=== PATIENT | male | born 1985 ===

== ENCOUNTER 2021-03-16 18:07 | Emergency (ER) | payer SELFPAY ==
[~2021-03-16] VITALS: Ht 170.2 cm; Wt 82.0 kg
--- NOTE | 2021-03-16 18:31 | NUR ---
ICE APPLIED TO RIGHT HAND IN TRIAGE.
[2021-03-16 19:53] VITALS: BP 150/87
[2021-03-16] MEDS ORDERED: IBUPROFEN 200 MG TABLET ONE (22:18)
[2021-03-16] MEDS ORDERED: IBUPROFEN 200 MG TABLET PO ONE (22:30)
== END 2021-03-16 22:30 | disposition home or self-care (01) ==
LOC: ED 18:30
DX: S62.101A Fracture of unspecified carpal bone, right wrist, initial encounter for closed fracture (principal); S60.221A Contusion of right hand, initial encounter; X58.XXXA Exposure to other specified factors, initial encounter; Y93.89 Activity, other specified; Y92.410 Unspecified street and highway as the place of occurrence of the external cause; Y99.8 Other external cause status
CPT/HCPCS: 29125; 99284